=== PATIENT | male | born 1960 | race Caucasian/White ===

== ENCOUNTER 2018-07-15 02:29 | Emergency (ER) | payer OTHER ==
[~2018-07-15] VITALS: Ht 180.3 cm; Wt 108.9 kg
--- NOTE | 2018-07-15 02:48 | PHYS DOC ---
Adult General Chief Complaint Chief Complaint: LACERATION/AVULSION HPI HPI Patient is a 57 year old male who presents with scalp laceration. Patient was walking on the ice when he slipped and fell backwards. He struck his head on the ground. He sustained a laceration to the posterior scalp. The patient did not lose consciousness. He has no nausea or vomiting. No vision changes. The accident happened about one hour prior to presentation. He denies cervical neck pain. He denies additional injuries. Review of Systems Review of Systems Constitutional: Denies fever or chills Eyes: Denies change in visual acuity HENT: Denies injury Respiratory: Denies cough or shortness of breath Cardiovascular: No additional information not addressed in HPI GI: Denies nausea or emesis Musculoskeletal: Denies back pain Neurologic: Denies headache All other systems were reviewed and found to be within normal limits, except as documented in this note. Current Medications Current Medications Current Medications Medications (Trade) Dose Ordered Sig/Yareli Start Time Stop Time Status Last Admin Dose Admin Diphtheria/ Tetanus/Acell Pertussis (Boostrix) 0.5 ml ONCE ONCE 07/15/18 03:00 07/15/18 03:01 DC Lidocaine/ Epinephrine (LIDOCAINE 1%-EPI 1:100,000 Multi-Dose) 20 ml 1X ONCE 07/15/18 03:00 07/15/18 03:01 DC Allergies Allergies Allergies Coded Allergies Type Severity Reaction Last Updated Verified No Known Drug Allergies 07/15/18 No Physical Exam Physical Exam Constitutional: Well developed, well nourished, no acute distress, non-toxic appearance HENT: Normocephalic, 2 cm L-shaped laceration over the posterior scalp, bilateral external ears normal, oropharynx moist, no oral exudates, nose normal Eyes: PERRLA, EOMI, conjunctiva normal Neck: Normal range of motion, no midline cervical tenderness Cardiovascular:Heart rate regular rhythm, no murmur Skin: Warm, dry, no erythema, no rash Back: No tenderness Extremities: No trauma Neurologic: Alert and oriented X 3, normal motor function, normal sensory function Psychologic: Affect normal Current Patient Data Vital Signs Vital Signs Date Time Temp Pulse Resp B/P (MAP) Pulse Ox O2 Delivery O2 Flow Rate FiO2 07/15/18 02:38 97.9 75 20 161/98 (119) 96 Room Air 97.9 EKG EKG [] Radiology/Procedures Radiology/Procedures [] Course & Med Decision Making Course & Med Decision Making Pertinent Labs and Imaging studies reviewed. (See chart for details) Patient was evaluated in the emergency department for a scalp laceration. His laceration was repaired. See the procedure note below. The patient met no criteria for imaging by the [place] criteria, [place] head CT rules, Nexus II. Patient was discharged to home. He was given head injury precautions. He was advised to come back to the ER in 10-14 days to have the frank removed. All of his questions were answered prior to discharge home and he was agreeable to the plan of care. Procedure note: Laceration over posterior scalp. Total length was approximately 2 cm. This was an L shaped laceration. The area was rinsed thoroughly with normal saline. Local anesthesia was provided with a total of 5 mL of 1% lidocaine with epinephrine. Following this, 4 frank were placed. The wound edges were well approximated. The patient tolerated the procedure very well. Dragon Disclaimer Dragon Disclaimer This electronic medical record was generated, in whole or in part, using a voice recognition dictation system. Departure Departure Disposition: 01 HOME, SELF-CARE Condition: GOOD Referrals: UNKNOWN PCP NAME (PCP) GARRETT MEDINA DO Jul 15, 2018 02:48
[2018-07-15] MEDS ORDERED: LIDOCAINE 1%/EPI 1:100,000 20 ML VIAL. INJ ONE (03:00)
[2018-07-15] MEDS ORDERED: DIPHTH,PERTUSS(ACELL),TET TOX 0.5 ML DISP.SYRIN. VAX IM ONE (03:00)
[2018-07-15 03:20] VITALS: BP 151/88
== END 2018-07-15 03:25 | disposition home or self-care (01) ==
LOC: ER 02:29
DX: S01.01XA Laceration without foreign body of scalp, initial encounter (principal); W00.0XXA Fall on same level due to ice and snow, initial encounter; Y93.01 Activity, walking, marching and hiking; Y92.89 Other specified places as the place of occurrence of the external cause; Y99.8 Other external cause status
CPT/HCPCS: 12001; 90471; 90715; 99283; J3490

== ENCOUNTER 2018-07-27 08:07 | Emergency (ER) | payer OTHER ==
[~2018-07-27] VITALS: Ht 170.2 cm; Wt 108.9 kg
[2018-07-27 08:11] VITALS: BP 152/106
--- NOTE | 2018-07-27 08:28 | PHYS DOC ---
Past Medical History Past Medical History: No Pertinent History Alcohol Use: None Drug Use: None Adult General Chief Complaint Chief Complaint: SUTURE/STAPLE REMOVAL HPI HPI Patient is a 57 year old male who presents to the ER for staple removal. Pt states the frank were placed 12 days ago after he slipped and fell on ice. Pt denies any drainage, redness, or pain at the site. He denies any headaches, nausea, vomiting, vision changes, or neck pain. He denies any complaints at this time. Review of Systems Review of Systems Constitutional: Denies fever or chills [] Eyes: Denies change in visual acuity Musculoskeletal: Denies neck pain Integument: reports frank to left posterior scalp Neurologic: Denies headache, focal weakness or sensory changes [] Allergies Allergies Allergies Coded Allergies Type Severity Reaction Last Updated Verified No Known Drug Allergies 07/15/18 No Physical Exam Physical Exam Constitutional: Well developed, well nourished, no acute distress, non-toxic appearance. [] HENT: Normocephalic, atraumatic, bilateral external ears normal, oropharynx moist, no oral exudates, nose normal. [] Eyes: PERRLA, EOMI, conjunctiva normal, no discharge. [] Neck: Normal range of motion, no tenderness, supple, no stridor. [] Cardiovascular:Heart rate regular rhythm, no murmur [] Lungs & Thorax: Bilateral breath sounds clear to auscultation [] Abdomen: Bowel sounds normal, soft, no tenderness, no masses, no pulsatile masses. [] Skin: Warm, dry, no erythema, no rash. [] Back: No tenderness, no CVA tenderness. [] Extremities: No tenderness, no cyanosis, no clubbing, ROM intact, no edema. [] Neurologic: Alert and oriented X 3, normal motor function, normal sensory function, no focal deficits noted. [] Psychologic: Affect normal, judgement normal, mood normal. [] EKG EKG [] Radiology/Procedures Radiology/Procedures Staple removal Left posterior scalp wound edges were well approximated without erythema or drainage. Four frank are present and four were removed with a staple remover, there is no wound dehiscence or drainage post staple removal. Pt tolerated the procedure well. [] Course & Med Decision Making Course & Med Decision Making Pertinent Labs and Imaging studies reviewed. (See chart for details) [] Dragon Disclaimer Dragon Disclaimer This electronic medical record was generated, in whole or in part, using a voice recognition dictation system. Departure Departure Impression: Primary Impression: Encounter for removal of farnk Disposition: 01 HOME, SELF-CARE Condition: STABLE Referrals: VINCE MANCINI (PCP) Patient Instructions: Staple Removal, Care After Additional Instructions: Tylenol or ibuprofen as needed for pain. Follow the care instructions provided. Follow up with your primary care doctor as needed, return to the ER if symptoms worsen. MARICEL ARECHIGA APRN Jul 27, 2018 08:28
== END 2018-07-27 08:32 | disposition home or self-care (01) ==
LOC: ER 08:07
DX: S01.01XD Laceration without foreign body of scalp, subsequent encounter (principal); W00.0XXD Fall on same level due to ice and snow, subsequent encounter
CPT/HCPCS: 99281